=== PATIENT | male | born 1945 ===

== ENCOUNTER 2024-05-26 20:54 | Inpatient (IN) | payer MEDICARE, OTHER ==
[~2024-05-26] VITALS: Ht 175.3 cm; Wt 111.0 kg
[~2024-05-26 20:54] MED LIST: ABAC300; ACET500 PO; AMLO10 PO; AMOCLA875 PO; ASPI325 PO; ASPI81CH PO; ASPI81EC PO; ATEN100 PO; ATEN50 PO; ATOR20 PO; ENTRESTO 24 MG1 EACH PO; FISH1000 PO; FURO20 PO; GLIP5 PO; HUMALOG KW100 UNIT/1 SC; INS70/30I SC; INS70/30I SUBQ; INSN100I SUBQ; INSR10I SUBQ; INSULANI SC; INSULIN AS100 UNIT/7 SC; JARDIANCE25 MG PO; LOSA25 PO; LOSHYD PO; MAGOXI400 PO; METF500 PO; METF500C PO; METO25ER PO; NOVOLOG100 UNIT/2 SC; OMEG1CAP30 PO; OMEP20ER PO; OXYC5 PO; POTA10T PO; SIMV10 PO; SIMV20 PO; SIMVASTATIN PO; SPIR25 PO; TERB250 PO; VITAMIN B-650 MG PO; XARELTO10 M1 PO
[2024-05-26] MEDS ORDERED: FentaNYL Citrate 50 MCG/ML 2 ML Injection IV ONE (21:05)
[2024-05-26] MEDS ORDERED: Ondansetron HCl 2 MG / ML 2ML Vial IV ONE (21:05)
[2024-05-26] MEDS ORDERED: NS 1,000 ML IV SCH ×2 (21:10→22:15)
[2024-05-26 21:24] LABS: BASOPHILS ABSOLUTE AUTO 0.07 K/mm3 (0.00-0.23); BASOPHILS PERCENT AUTO 1 % (0-2); EOSINOPHILS ABSOLUTE AUTO 0.13 K/mm3 (0.00-0.68); EOSINOPHILS PERCENT AUTO 2 % (0-6); Hematocrit 36.1 % (37.0-53.0); Hemoglobin 12.5 g/dL (13.5-17.5); IMMATURE GRAN ABSOLUTE AUTO 0.02 K/mm3 (0.00-0.10); IMMATURE GRAN PERCENT AUTO 0 % (0-1); LYMPHOCYTES ABSOLUTE AUTO 1.47 K/mm3 (0.84-5.20); LYMPHOCYTES PERCENT AUTO 23 % (21-46); MONOCYTES ABSOLUTE AUTO 0.98 K/mm3 (0.16-1.47); MONOCYTES PERCENT AUTO 15 % (4-13); Mean Corpuscular HGB 31.1 pg (26.0-34.0); Mean Corpuscular HGB Conc 34.6 g/dL (31.5-36.5); Mean Corpuscular Volume 90 fL (80-100); Mean Platelet Volume 10.4 fL (9.1-12.4); NEUTROPHILS ABSOLUTE AUTO 3.72 K/mm3 (1.96-9.15); NEUTROPHILS PERCENT AUTO 58 % (41-73); Platelet Count 230 K/mm3 (150-400); RDW Coefficient Variation 17.2 % (11.7-14.2); RDW Standard Deviation 57.1 fL (35.1-46.3); Red Blood Cell Count 4.02 M/mm3 (4.30-5.90); White Blood Cell Count 6.39 K/mm3 (4.00-11.30)
[2024-05-26] MEDS ORDERED: NOVOLOG100 UNIT/3 SQ (21:38)
[2024-05-26 21:39] LABS: Albumin, Blood 2.5 g/dL (3.4-5.0); Albumin/Globulin Ratio 0.8 (0.8-1.8); Bilirubin, Total 0.6 mg/dL (0.1-1.0); Bun/Creatinine Ratio 35.8 (12.0-20.0); Calcium, Blood 12.7 mg/dL (8.5-10.1); Creatinine, Blood 1.37 mg/dL (0.60-1.20); Globulin, Blood 3.1 g/dL (2.2-4.0); Potassium, Blood 4.5 mmol/L (3.5-5.5); Total Protein, Blood 5.6 g/dL (6.4-8.2)
[2024-05-26] MEDS ORDERED: CefTRIAXone Sodium 2,000 MG in NS 100 ML IV ONE (23:50)
[2024-05-26 23:51] LABS: Source, Urine Clean Catch
[2024-05-26 23:56] LABS: Appearance, Urine Hazy (Clear); Bilirubin, Urine Neg (Neg); Blood, Urine 1+ (Neg); Color, Urine Yellow (P-Yellow); Glucose Qualitative, Urine 4+ (Neg); Ketones, Urine Neg (Neg); Leukocyte Esterase, Urine 1+ (Neg); Nitrite, Urine Neg (Neg); Protein, Urine 2+ (Neg); Urobilinogen, Urine NORM (Normal)
[2024-05-27 00:19] LABS: Bacteria Many /hpf; Red Blood Cells, Urine 0-2 /hpf (0-2); Squamous Epithelial Cells Many /hpf (Few)
[2024-05-27 00:20] LABS: Granular Casts 0-2 /lpf (0); Hyaline Casts 0-2 /lpf (0-2)
[2024-05-27] MEDS ORDERED: Dose Adjust by Pharmacy XX STA (00:42)
[2024-05-27] MEDS ORDERED: Heparin Sodium 5000 Units/ML 1ML MDV IV ONE (00:45)
[2024-05-27] MEDS ORDERED: Heparin Sodium,Porcine/0.5 NS 500 ML IV SCH (00:45)
[2024-05-27 00:58] LABS: Anti-Xa UFH, PHA Monitoring <0.10 IU/mL; International Normalized Ratio 1.06; Prothrombin Time Results 11.3 Sec (9.7-11.5)
[2024-05-27] MEDS ORDERED: NS 1,000 ML IV SCH ×2 (01:25→02:00)
[2024-05-27] MEDS ORDERED: FLU VACC TS2024-25(6MOS UP)/PF 45 MCG/0.5 ML SYRINGE IM ONE (01:35)
[2024-05-27] MEDS ORDERED: Ondansetron 4 MG TAB PO PRN (01:35)
[2024-05-27] MEDS ORDERED: FentaNYL Citrate 50 MCG/ML 2 ML Injection IV PRN (03:35)
[2024-05-27 03:45] VITALS: BP 98/69
[2024-05-27] MEDS ORDERED: NS 500 ML IV ONE (04:15)
[2024-05-27 04:45] LABS: Influenza A, PCR NEGATIVE (NEGATIVE); Influenza B, PCR NEGATIVE (NEGATIVE); Resp Syncytial Virus, PCR NEGATIVE (NEGATIVE); SARS-Cov-2 (COVID-19) PCR, MMC NEGATIVE (NEGATIVE)
[2024-05-27] MEDS ORDERED: FentaNYL Citrate 50 MCG/ML 2 ML Injection IV ONE (04:45)
[2024-05-27] MEDS ORDERED: Vasopressin 20 UNITS in NS 100 ML IV SCH (05:15)
--- NOTE | 2024-05-27 06:15 | NUR ---
ER ADMIT TO ICU 15/CODE: PT ARRIVED TO THE UNIT AT 0352. PT ADMITTED WITH UROSEPSIS, HYPOTENSION. PT BROUGHT UP TO THE UNIT WITH LEVO @ 6 MCG/MIN. UPON ARRIVAL PT A&O X 4, PLEASANT AND COOPERATIVE WITH CARE. PT ON RA, LUNGS CLEAR WITH DIM BASES, AND DENIES SOB AT THIS TIME, SPO2 94<. AFIB RVR ON MONITOR WITH HR 130-190'S, SBP 60-70 AND DENIES CHEST PAIN AT THIS TIME. PT C/O ABD PAIN IN LUQ AND RLQ. HERNANDEZ PLACED IN ER, PURULENT DISCHARGED NOTED AT [facility]. SINCE ARRIVAL PT MAPS DECLINING, LEVO GTT TITRATED UP TO 10. MAYTE AT BEDSIDE FOR EVAL. UPDATED ON INCREASE IN LEVO AND PLANS FOR CENTRAL LINE. LINE PLACED IN RIJ. PT'S HEAD OF BED IS BEING RAISED, PT OBSERVED TO BE UNRESPONSIVE WITH A FIXED, LEFT UPWARD GAZE, IRREGULAR BREATHING NOTED. MAYTE REMAINED AT BEDSIDE AT THIS TIME TO WITNESS EVENT. PT RATE BEGAN TO SLOW DOWN RADIPLY FROM 130-190'S TO 70-80'S. PT LAID FLAT, PULSE CHECK PERFORMED AND NO PULSE PALPABLE OR FOUND WITH DOPPLER. 0513-ROBBY MORRIS CALLED. CPR STARTED BY THIS RN, TWO COMPRESSIONS GIVEN AND PT BECAME RESPONIVE WITH PULSE, HR 70, UNABLE TO OBTAIN MANUAL BP. 0515-1 MG ATROPINE GIVEN. 0515-PULSE LOST, CPR STARTED. 1 MG EPI GIVEN. 0517-10 ETOMIDATE GIVEN, 80 PENG GIVEN. 0518- INTUBATED BT RT, RT BAGGIN PT. BLOOD COMING OUT OF MOUTH, ORAL SUCTIONING. AMP BICARB GIVEN. 0520-1 MG EPI GIVEN. 0522- 2 G MAG GIVEN 0521- AMP BICARB GIVEN 0525- 1 MG EPI GIVEN. YAYA MELGAR RN ON PHONE WITH . , JUAN ORTEGA, VERBALIZED "IF HE IS TOO FAR GONE TO LET HIM GO". MAYTE VERBALIZED TO CONTINUE TO CPR FOR ANOTHER 2 MINUTES. PT'S CASE DISCUSSED WITH CODE TEAM, ALL IN AGREEMENT THAT ALL TREATMENTS HAVE BEEN UTILIZED. FINAL PULSE CHECK COMPLETED, PT REMAINS WITHOUT PULSE. HEART TONES ASCULTATED BY THIS RN AND CHETSER, NO HEART TONES NOTED. TOD CALL BY MAYTE @ [id number]. JUAN ORTEGA ARRIVED AND UPDATED ON EVENTS LEADING UP TO THE PATIENT'S PASSING. SHE PROVIDED INFORMATION FOR CREMATION SERVICE THAT THEY HAVE.
[2024-05-27] MEDS ORDERED: Rocuronium Bromide 10 MG/ML 5ML Injection IV ONE (06:36)
[2024-05-27] MEDS ORDERED: Etomidate 2MG / ML 10ML Vial IV ONE (06:36)
[2024-05-27] MEDS ORDERED: Magnesium Sulfate 500 MG / ML 2ML Vial IV ONE (07:02)
[2024-05-27] MEDS ORDERED: Atropine Sulfate 0.1 MG/ML 10ML SYR IV ONE (07:02)
[2024-05-27] MEDS ORDERED: Sodium Bicarb 8.4% 50 mEq Syringe IV ONE (07:02)
[2024-05-27] MEDS ORDERED: EPINEPhrine HCl 0.1 MG/ML 10ML SYR IV ONE (07:02)
[2024-05-28] MEDS ORDERED: CefTRIAXone Sodium 1,000 MG in NS 100 ML IV SCH
== END 2024-05-27 05:29 | DRG 872 ==
LOC: ER 20:54 → ERHOLD 05-27 00:15 → ICUE 05-27 03:55
PROVIDERS: Emergency Medicine; Student in an Organized Health Care Education/Training Program; ADMIT Internal Medicine
PROC: 3E033XZ Introduction of Vasopressor into Peripheral Vein, Percutaneous Approach (ICD-10-PCS; principal; 2024-05-27)
PROC: 5A12012 Performance of Cardiac Output, Single, Manual (ICD-10-PCS; 2024-05-27)
PROC: 3E03329 Introduction of Other Anti-infective into Peripheral Vein, Percutaneous Approach (ICD-10-PCS; 2024-05-27)
DX: A41.9 Sepsis, unspecified organism (principal); N17.9 Acute kidney failure, unspecified; N39.0 Urinary tract infection, site not specified; K92.2 Gastrointestinal hemorrhage, unspecified; I82.412 Acute embolism and thrombosis of left femoral vein; I82.452 Acute embolism and thrombosis of left peroneal vein; I82.432 Acute embolism and thrombosis of left popliteal vein; I82.442 Acute embolism and thrombosis of left tibial vein; R65.20 Severe sepsis without septic shock; I10 Essential (primary) hypertension; E11.9 Type 2 diabetes mellitus without complications; I48.0 Paroxysmal atrial fibrillation; I49.01 Ventricular fibrillation; E78.5 Hyperlipidemia, unspecified; R57.8 Other shock; Z87.19 Personal history of other diseases of the digestive system; Z90.49 Acquired absence of other specified parts of digestive tract; Z98.890 Other specified postprocedural states; Z87.891 Personal history of nicotine dependence; Z88.8 Allergy status to other drugs, medicaments and biological substances; Z91.011 Allergy to milk products; Z79.4 Long term (current) use of insulin; Z79.899 Other long term (current) drug therapy; Z89.432 Acquired absence of left foot; Z90.411 Acquired partial absence of pancreas
CPT/HCPCS: 0241U; 36415; 51702; 71045; 71260; 74177; 80053; 81001; 83605; 83690; 83880; 84484; 85025; 85520; 85610; 85730; 87040; 87077; 87086; 87186; 93005; 93010; 93971; 99285-25; J0282; J0461; J0696; J1644; J2405; J3010; J3475; J7030; J7040; J7060; Q9967